=== PATIENT | female | born 1980 | race African-American/Black ===

== ENCOUNTER 2018-04-16 08:00 | Emergency (ER) | payer OTHER ==
[~2018-04-16] VITALS: Ht 162.6 cm; Wt 158.8 kg
[2018-04-16] MEDS ORDERED: TRAMADOL 50 MG50 MG PO (08:52)
[2018-04-16] MEDS ORDERED: PENICILLIN VK500 M1 PO (08:52)
[2018-04-16 09:44] VITALS: BP 145/96
== END 2018-04-16 09:44 | disposition home or self-care (01) ==
LOC: ER 08:00
DX: K04.7 Periapical abscess without sinus (principal); K02.9 Dental caries, unspecified; Z88.2 Allergy status to sulfonamides; Z88.8 Allergy status to other drugs, medicaments and biological substances

== ENCOUNTER 2020-05-20 19:57 | Emergency (ER) | payer OTHER ==
[~2020-05-20] VITALS: Ht 162.6 cm; Wt 158.8 kg
[~2020-05-20 19:57] MED LIST: PENICILLIN VK500 M1 PO; TRAMADOL 50 MG50 MG PO
[2020-05-20 19:58] VITALS: BP 141/89
[2020-05-20 20:43] LABS: ABSOLUTE NEUTROPHILS 5.3 thou/uL (1.4-8.2); BASOPHILS 0.6 % (0.0-2.0); EOSINOPHILS 1.1 % (0.0-3.0); HEMATOCRIT 37.6 % (37.0-47.0); HEMOGLOBIN 12.5 gm/dL (12.0-15.0); LYMPHOCYTES 22.5 % (24.0-44.0); MCH 29.4 pg (26.0-34.0); MCHC 33.4 g/dL (28.0-37.0); MCV 88.3 fL (80.0-100.0); MONOCYTES 9.3 % (1.0-8.0); PLATELET COUNT 278 thou/uL (150-400); POLYS 66.5 % (36.0-66.0); RBC 4.26 mil/uL (4.20-5.00); RDW 14.6 % (10.5-14.5)
[2020-05-20 20:54] LABS: CREATININE 1.1 mg/dL (0.6-1.0)
[2020-05-20 20:59] LABS: ALBUMIN 3.3 g/dL (3.4-5.0); TOTAL BILIRUBIN 0.3 mg/dL (0.2-1.0); TOTAL PROTEIN 7.8 g/dL (6.4-8.2)
[2020-05-20 21:34] LABS: URINE BILIRUBIN NEGATIVE (Negative); URINE BLOOD NEGATIVE (Negative); URINE CLARITY CLEAR; URINE COLOR YELLOW; URINE GLUCOSE-RANDOM* NEGATIVE (Negative); URINE KETONES NEGATIVE (Negative); URINE LEUKOCYTES-REFLEX NEGATIVE (Negative); URINE NITRITE-REFLEX NEGATIVE (Negative); URINE PROTEIN (DIPSTICK) NEGATIVE (Negative); URINE UROBILINOGEN 0.2 E.U./dl (0.2-1.0)
[2020-05-20] MEDS ORDERED: MEDROXYPROGESTE10 MG PO (21:45)
== END 2020-05-20 22:12 | disposition home or self-care (01) ==
LOC: ER 19:57
PROVIDERS: Physician Assistant
DX: N93.8 Other specified abnormal uterine and vaginal bleeding (principal); R53.1 Weakness; Z88.2 Allergy status to sulfonamides; Z88.8 Allergy status to other drugs, medicaments and biological substances